=== PATIENT | male | born 1985 | race Caucasian/White ===

== ENCOUNTER 2018-01-26 18:48 | Emergency (ER) | payer OTHER ==
[~2018-01-26] VITALS: Ht 167.6 cm; Wt 58.6 kg
[~2018-01-26 18:48] MED LIST: FLX10 PO; LRT5 PO; MEDLIST; [UNRECOGNIZED DRUG - OTHER]
[2018-01-26 18:54] VITALS: TEMP 37
[2018-01-26] MEDS ORDERED: SODIUM CHLORIDE 0.9% 1000ML 1,000 ML IV STA (19:12)
[2018-01-26] MEDS ORDERED: MULT-506 PO (19:23)
[2018-01-26 19:40] VITALS: O2SAT 99
[2018-01-26 19:41] VITALS: Ht 167.6 cm; Wt 58.6 kg
[2018-01-26 19:59] LABS: BASO % 0.6 %; BASO ABS # 0.03 K/uL (0-0.2); EOS % 1.7 %; EOS ABS # 0.09 K/uL (0-0.5); HEMOGLOBIN 14.3 g/dL (14.0-18.0); IG# 0.01 K/uL (0.00-0.02); LYMPH ABS # 2.28 K/uL (1.2-3.4); MEAN CELL VOLUME 84.9 fL (80-100); MEAN CORPUSCULAR HEMOGLOBIN 30.4 pg (25-34); MEAN CORPUSCULAR HGB CONC 35.8 g/dl (32-36); MEAN PLATELET VOLUME 10.6 fL (7.4-10.4); MONO % 8.5 %; MONO ABS # 0.45 K/uL (0.11-0.59); NEUT ABS # 2.44 K/uL (1.4-6.5); PLATELET COUNT 200 K/uL (130-400); RED CELL DISTRIBUTION WIDTH CV 12.6 % (11.5-14.5); RED CELL DISTRIBUTION WIDTH SD 38.7 fL (36.4-46.3)
[2018-01-26 20:28] LABS: CREATININE 1.12 mg/dl (0.60-1.40); POTASSIUM 3.9 mmol/L (3.5-5.1)
[2018-01-26 20:29] LABS: ALBUMIN 4.6 gm/dl (3.4-5.0); CALCIUM 9.4 mg/dl (8.5-10.1); TOTAL PROTEIN 7.6 gm/dl (6.4-8.2)
[2018-01-26 22:16] VITALS: BP 105/64; PULSE 58; O2SAT 97
--- NOTE | 2018-01-26 22:18 | EMERGENCY ROOM VISIT NOTE ---
History Report prepared by Azul: Chrystal Barboza Under the Supervision of: Dr. Hema Medeiros M.D. First contact with patient: 18:57 Chief Complaint: DIZZY Stated Complaint: DIZZY, NUMBNESS IN HANDS AND FEET History of Present Illness The patient is a 32 year old male who presents to the Emergency Room with complaints of worsening dizziness starting 3 weeks ago. The dizziness was intermittent at first, but has become more constant over the past 3 days. The patient decided to come to the ED today because he did not feel like he would be able to drive to [place] as he was planning because of the dizziness. He experienced some numbness in his forearms and feet 1 hour ago which has resolved. His palms were sweaty. His vision has been slightly blurry and he has had difficulty focusing. He has never had these symptoms before. He has experienced some nausea. He has had intermittent palpitations. He had some abdominal pain for 3-4 days which has resolved. The pain felt like indigestion. He has been eating and drinking well since. He has some facial numbness. He denies any headache, vomiting, fever, weakness, change in bowel movements, neck pain, rash, oral numbness, change in taste, cramping, or SOB. He had an episode of LOC 3 days ago. He was in the bathroom when he started feeling warm and dizzy. He stood up and became more warm and diaphoretic. He felt dizzy and fell into the bathtub. He denies any injury in the fall. The dizziness and warmth passed after he laid in the bathtub for around 30 seconds. He was seen at a clinic after the LOC and had blood work. He has not received the results of the blood work. He has been taking a multivitamin since then. He reports that he had a foot of small intestine removed over 20 years ago which resulted in some issues with his B12 levels. He has a history of celiac disease. He is currently not on any medications. He denies any recent trauma. Source of History: patient Onset: 3 weeks ago Position: head Quality: other (dizziness) Timing: worsening Associated Symptoms: + LOC, + nausea, + abdominal pain (resolved), + numbness, No fevers, No headache, No neck pain, No SOB, No vomiting, No weakness Review of Systems See HPI for pertinent positives and negatives. A total of ten systems were reviewed and were otherwise negative. Past Medical & Surgical Medical Problems: (1) Celiac disease Family History Hypertension Social History Smoking Status: Never Smoker Occupation Status: employed Current/Historical Medications Scheduled Multivitamin (Multivitamin), 1 TAB PO DAILY Allergies Coded Allergies: Gluten (Verified Allergy, Intermediate, GI SYMPTOMS, 01/26/18) Ragweed (Verified Allergy, Mild, SNEEZING, CONGESTION, 01/26/18) Physical Exam Vital Signs Date Time Temp Pulse Resp B/P (MAP) Pulse Ox O2 Delivery O2 Flow Rate FiO2 01/26/18 20:56 56 15 100/61 99 Room Air 01/26/18 20:18 61 01/26/18 19:57 78 15 110/80 100 59 118/74 61 118/75 01/26/18 19:40 99 Room Air 01/26/18 18:54 37.0 62 18 106/66 99 Room Air Physical Exam GENERAL: Awake, alert, well-appearing, in no distress HENT: Normocephalic, atraumatic. Oropharynx unremarkable. EYES: Normal conjunctiva. Sclera non-icteric. NECK: Supple. No nuchal rigidity. RESPIRATORY: Clear to auscultation. No wheezes. Normal respiratory effort. CARDIAC: Normal rate. Normal rhythm. Extremities warm and well perfused. GI: Soft, non-distended. No tenderness to palpation. No rebound or guarding. No masses. RECTAL: Deferred. MUSCULOSKELETAL: Atraumatic. Chest examination reveals no tenderness. The back is symmetrical on inspection without obvious abnormality. There is no CVA tenderness to palpation. LOWER EXTREMITIES: Calves are equal size bilaterally and non-tender. No edema NEURO: Normal sensorium. No sensory or motor deficits noted. SKIN: Warm and dry. No rash or jaundice noted. Medical Decision & Procedures Laboratory Results 01/26/18 19:27 Red Blood Count 4.71, Mean Corpuscular Volume 84.9, Mean Corpuscular Hemoglobin 30.4, Mean Corpuscular Hemoglobin Concent 35.8, Mean Platelet Volume 10.6, Neutrophils (%) (Auto) 46.0, Lymphocytes (%) (Auto) 43.0, Monocytes (%) (Auto) 8.5, Eosinophils (%) (Auto) 1.7, Basophils (%) (Auto) 0.6, Neutrophils # (Auto) 2.44, Lymphocytes # (Auto) 2.28, Monocytes # (Auto) 0.45, Eosinophils # (Auto) 0.09, Basophils # (Auto) 0.03 01/26/18 19:27 Test 01/26/18 19:20 01/26/18 19:27 Urine Color YELLOW Urine Appearance CLEAR (CLEAR) Urine pH 8.5 (4.5-7.5) Urine Specific [place] 1.004 (1.000-1.030) Urine Protein NEG (NEG) Urine Glucose (UA) NEG (NEG) Urine Ketones NEG (NEG) Urine Occult Blood NEG (NEG) Urine Nitrite NEG (NEG) Urine Bilirubin NEG (NEG) Urine Urobilinogen NEG (NEG) Urine Leukocyte Esterase NEG (NEG) White Blood Count 5.30 K/uL (4.8-10.8) Red Blood Count 4.71 M/uL (4.7-6.1) Hemoglobin 14.3 g/dL (14.0-18.0) Hematocrit 40.0 % (42-52) Mean Corpuscular Volume 84.9 fL (80-100) Mean Corpuscular Hemoglobin 30.4 pg (25-34) Mean Corpuscular Hemoglobin Concent 35.8 g/dl (32-36) Platelet Count 200 K/uL (130-400) Mean Platelet Volume 10.6 fL (7.4-10.4) Neutrophils (%) (Auto) 46.0 % Lymphocytes (%) (Auto) 43.0 % Monocytes (%) (Auto) 8.5 % Eosinophils (%) (Auto) 1.7 % Basophils (%) (Auto) 0.6 % Neutrophils # (Auto) 2.44 K/uL (1.4-6.5) Lymphocytes # (Auto) 2.28 K/uL (1.2-3.4) Monocytes # (Auto) 0.45 K/uL (0.11-0.59) Eosinophils # (Auto) 0.09 K/uL (0-0.5) Basophils # (Auto) 0.03 K/uL (0-0.2) RDW Standard Deviation 38.7 fL (36.4-46.3) RDW Coefficient of Variation 12.6 % (11.5-14.5) Immature Granulocyte % (Auto) 0.2 % Immature Granulocyte # (Auto) 0.01 K/uL (0.00-0.02) Anion Gap 6.0 mmol/L (3-11) Est Creatinine Clear Calc Drug Dose 78.5 ml/min Estimated GFR () 100.2 Estimated GFR (Non- 86.5 BUN/Creatinine Ratio 12.9 (10-20) Calcium Level 9.4 mg/dl (8.5-10.1) Magnesium Level 2.3 mg/dl (1.8-2.4) Total Bilirubin 0.6 mg/dl (0.2-1) Direct Bilirubin 0.2 mg/dl (0-0.2) Aspartate Amino Transf (AST/SGOT) 16 U/L (15-37) Alanine Aminotransferase (ALT/SGPT) 22 U/L (12-78) Alkaline Phosphatase 67 U/L (45-117) Total Protein 7.6 gm/dl (6.4-8.2) Albumin 4.6 gm/dl (3.4-5.0) Vitamin B12 Level 233 pg/mL (211-911) Thyroid Stimulating Hormone (TSH) 1.630 uIu/ml (0.300-4.500) Lyme Disease IgG Antibody NEG (NEG) Laboratory results reviewed by me Medications Administered Medications (Trade) Dose Ordered Sig/Gabriela Route Start Time Stop Time Status Last Admin Dose Admin Sodium Chloride 1,000 ml @ 999 mls/hr Q1H1M STAT IV 01/26/18 19:12 01/26/18 20:12 DC 01/26/18 19:12 999 MLS/HR ECG Per My Interpretation Indication: other (dizziness) Rate (beats per minute): 53 Rhythm: sinus bradycardia Findings: other (normal intervals, no ST segment elevation, nonspecific V1 V2 T wave changes) Comparison ECG Date: no prior available ED Course 1857: The patient was evaluated in room B8. A complete history and physical exam was performed. 1911: Sodium Chloride 1000 ml @ 999 mls/hr IV. 2153: I reevaluated the patient. Discussed results and discharge instructions: He verbalized understanding and agreement. The patient is ready for discharge. Medical Decision Etiologies such as metabolic, infection, hypo/hyperglycemia, electrolyte abnormalities, cardiac sources, intracerebral event, toxicologic, neurologic, as well as others were entertained. Patient presents with diffuse nonspecific complaints of dizziness and numbness on his body. Nothing really localizing stroke distribution. No headache. No recent trauma. Did have a syncope episode 3 days ago. Not currently established for care but trying to get back in has a history of Crohn's and thinks he may have experiencing symptoms of a B12 deficiency. Today had difficulty driving back to [place] where he is from due to dizziness and had to lung puller and came here for evaluation. No weakness. Some nausea at times. No chest pain. Rare palpitation. This could be a sequelae of his Crohn's and vitamin deficiency. Does not seem consistent with stroke or bacterial or fungal meningitis. Lower suspicion for viral meningitis. Lyme titers were sent but again presentation. Electrolytes completed. Given some fluid rehydration. Do not believe this is ACS, PE, or dissection. Discussed possible imaging with patient but do not feel is indicated at this ti seems odd for lyme to explain all his symptoms. Do not believe LP or CT is indicated. B12 level is not significantly low. EKG does show sinus bradycardia but not acutely symptomatic when it was taken. Do not see obvious evidence of Brugada's , prolonged QT, or WPW. Discussed with patient findings and feel that further outpatient workup is indicated. Did advise him that if he is having severe symptoms like this I would not recommend driving or operating heavy machinery. Discussed return precautions. Medication Reconcilliation Current Medication List: was personally reviewed by me Blood Pressure Screening Patient's blood pressure: Normal blood pressure Impression Primary Impression: Dizziness Additional Impressions: Numbness Syncope Scribe Attestation The scribe's documentation has been prepared under my direction and personally reviewed by me in its entirety. I confirm that the note above accurately reflects all work, treatment, procedures, and medical decision making performed by me. Departure Information Dispostion Home / Self-Care Referrals No Doctor, Assigned Forms HOME CARE DOCUMENTATION FORM, IMPORTANT VISIT INFORMATION Patient Instructions My [facility] Additional Instructions As we discussed maintain hydration. Your Lyme disease panel is pending confirmation studies at this point. B12 level was low normal. Unsure why exactly her adamantly having any symptoms. Would continue to have outpatient follow-up within the next several days with your regular doctor. Continue your normal GI scheduled follow-up. Would recommend possible further neurological workup if symptoms persist. Would be judicious with driving to avoid accident given intermittency of your symptoms. Problem Qualifiers Additional Impressions: Syncope Syncope type: unspecified Qualified Codes: R55 - Syncope and collapse
--- NOTE | 2018-01-30 20:08 | Pharmacy Progress Note ---
ED Pharmacist Progress Note Date of Service: Jan 30, 2018. Patient called to get Lyme's disease results. Western Blot was negative for IgG and IgM. Patient had no other questions.
== END 2018-01-26 22:17 | disposition home or self-care (01) ==
LOC: C.EDB 18:49
DX: R42 Dizziness and giddiness (principal); R20.0 Anesthesia of skin; R55 Syncope and collapse; R61 Generalized hyperhidrosis; H53.8 Other visual disturbances; W18.2XXA Fall in (into) shower or empty bathtub, initial encounter; Z91.048 Other nonmedicinal substance allergy status